=== PATIENT | male | born 1950 | race American Indian/Alaskan Native ===

== ENCOUNTER 2016-07-02 06:50 | Inpatient (IN) | payer MEDICARE ==
[~2016-07-02 06:50] MED LIST: ANCEF/STERILE WATER 2 GM/20 ML 2 GM/20 ML SYRINGE IV NR; NACL 0.9% 1000 ML 1,000 ML IV SCH
[2016-07-02 08:26] LABS: Hematocrit 40.5 % (35.5-45.6); Hemoglobin 12.8 gm/dl (11.8-15.2); Mean Corpuscular HGB Conc 32 % (32-34); Mean Corpuscular Hemoglobin 29 pg (28-32); Mean Corpuscular Volume 91 fl (84-94); Platelet Count 224 K/mm3 (140-440); Red Blood Count 4.47 M/mm3 (3.65-5.03); Red Cell Distribution Width 18.8 % (13.2-15.2); White Blood Count 7.2 K/mm3 (4.5-11.0)
[2016-07-02 08:32] LABS: INR 1.02 (0.87-1.13)
[2016-07-02 08:34] LABS: Partial Thromboplastin Time 28.5 Sec. (24.2-36.6)
[2016-07-02 10:58] LABS: BUN/Creatinine Ratio 3.37; Calcium 7.9 mg/dL (8.4-10.2); Chloride 93.1 mmol/L (98-107)
[2016-07-02 11:25] LABS: Potassium 6.4 mmol/L (3.6-5.0)
[2016-07-02] MEDS ORDERED: KIONEX PO ONE (12:23)
[2016-07-02] MEDS ORDERED: ANCEF/STERILE WATER 2 GM/20 ML 2 GM/20 ML SYRINGE IV ONE (13:39)
[2016-07-02] MEDS ORDERED: NACL 0.9% 100 ML ONE (13:43)
[2016-07-02] MEDS ORDERED: XYLOCAINE 1%/ EPI 1:100,000 INFILTRATI ONE (13:46)
[2016-07-02] MEDS ORDERED: SODIUM BICARBONATE IV ONE (13:46)
[2016-07-02] MEDS ORDERED: D50W (25GM) IV ONE (13:51)
[2016-07-02] MEDS: VERSED ONE ×3 (13:55→14:58)
[2016-07-02] MEDS: SUBLIMAZE ONE ×3 (13:55→14:58)
[2016-07-02] MEDS ORDERED: HEPARIN/NS 5000 UNIT/500ML(CATH LAB) 1,000 ML IR ONE (14:16)
[2016-07-02] MEDS: HEPARIN 10,000 UNITS/10 ML ONE ×2 (14:40→14:44)
[2016-07-02] MEDS ORDERED: NORCO 5/325 PO PRN (15:37)
--- NOTE | 2016-07-02 15:46 | Short Stay Summary ---
<BAILEE PARK - Last Filed: 07/02/16 15:44> Short Stay Documentation Date of service: 07/02/16 Narrative H&P: 66 year old male with ESRD and right arm AVF malfunction requiring attempts to create a HERO graft and requiring right internal jugular access. Attempts were made to salvage the access to attempt HERO graft conversion, but were unsuccessful. Left arm AV graft was then thought to be the patient's next best option. - Allergies and Medications Current Medications: Allergies No Known Allergies Allergy (Verified 03/09/13 12:06) Home Medications Medication Instructions Recorded Confirmed Last Taken Type Vit B Cplx #11/FA/C/Biot/Zn Ox 1 each PO DAILY 01/31/13 07/02/16 07/01/16 History [Dialyvite with Zinc Tablet] QUEtiapine [SEROquel] 50 mg PO PRN PRN 07/19/14 07/02/16 06/25/16 History Sevelamer HCl [Renagel] 5 tab PO QAC 07/19/14 07/02/16 07/01/16 History Cinacalcet [Sensipar] 60 mg PO DAILY 08/04/14 07/02/16 07/01/16 History Gabapentin [Neurontin] 100 mg pe PO QDAY 02/22/15 07/02/16 07/01/16 History Metoprolol [Lopressor TAB] 25 mg PO BID #60 tablet 06/21/16 07/02/16 07/01/16 Rx Active Medications Acetaminophen/Hydrocodone Bitart ([place] 5/325) 1 each PO Q6H PRN PRN Reason: Pain, Moderate (4-6) Cefazolin Sodium (Ancef/Sterile Water 2 Gm/20 Ml) 2 gm IV PREOP NR Stop: 07/05/16 07:59 Cinacalcet (Sensipar) 60 mg PO DAILY MARYCHUY Gabapentin (Neurontin) mg PO QDAY MARYCHUY Cefazolin Sodium (Ancef/Sterile Water 2 Gm/20 Ml) 2 gm in 20 mls @ 80 mls/hr IV PREOP NR PRN Reason: Protocol Stop: 07/02/16 23:59 Metoprolol Tartrate (Lopressor) 25 mg PO BID MARYCHUY Miscellaneous Medication (Sevelamer Hcl [Renagel]) 5 tab PO QAC MARYCHUY Quetiapine Fumarate (Seroquel) 50 mg PO PRN PRN PRN Reason: Anxiety - Disposition Condition at discharge: Stable Disposition: DISCHARGED TO HOME OR SELFCARE Short Stay Discharge Plan Follow up with: AUNG RUSSELL MD [Staff Physician] - 7 Days DEBRA SOLIS MD [Staff Physician] - 7 Days <NAKUL ZALDIVAR - Last Filed: 07/03/16 14:50> Short Stay Documentation - Allergies and Medications Current Medications: Allergies No Known Allergies Allergy (Verified 03/09/13 12:06) Home Medications Medication Instructions Recorded Confirmed Last Taken Type Vit B Cplx #11/FA/C/Biot/Zn Ox 1 each PO DAILY 01/31/13 07/02/16 07/01/16 History [Dialyvite with Zinc Tablet] QUEtiapine [SEROquel] 50 mg PO PRN PRN 07/19/14 07/02/16 06/25/16 History Sevelamer HCl [Renagel] 5 tab PO QAC 07/19/14 07/02/16 07/01/16 History Cinacalcet [Sensipar] 60 mg PO DAILY 08/04/14 07/02/16 07/01/16 History Gabapentin [Neurontin] 100 mg pe PO QDAY 02/22/15 07/02/16 07/01/16 History Metoprolol [Lopressor TAB] 25 mg PO BID #60 tablet 06/21/16 07/02/16 07/01/16 Rx Active Medications Acetaminophen (Tylenol) 650 mg PO Q4H PRN PRN Reason: Pain MILD(1-3)/Fever >100.5/QUIROGA Acetaminophen/Hydrocodone Bitart ([place] 5/325) 1 each PO Q6H PRN PRN Reason: Pain, Moderate (4-6) Cefazolin Sodium (Ancef/Sterile Water 2 Gm/20 Ml) 2 gm IV PREOP NR Stop: 07/05/16 07:59 Cinacalcet (Sensipar) 60 mg PO DAILY MARYCHUY Last Admin: 07/03/16 12:15 Dose: 60 mg Gabapentin (Neurontin) 100 mg PO QDAY MARYCHUY Last Admin: 07/03/16 12:15 Dose: 100 mg Heparin Sodium (Porcine) (Heparin) 5,000 unit IV SHU PRN PRN Reason: hemodialysis Last Admin: 07/02/16 20:09 Dose: 5,000 unit Sodium Chloride (Nacl 0.9% 1000 Ml) 100 mls @ 999 mls/hr IV SHU PRN PRN Reason: Hypotension Metoprolol Tartrate (Lopressor) 25 mg PO BID [facility] Last Admin: 07/03/16 12:14 Dose: 25 mg Morphine Sulfate (Morphine) 2 mg IV Q4H PRN PRN Reason: Pain, Moderate (4-6) Morphine Sulfate (Morphine) 4 mg IV Q4H PRN PRN Reason: Pain , Severe (7-10) Naloxone HCl (Narcan 0.4 Mg/1 Ml) 0.1 mg IV Q2MIN PRN PRN Reason: Res Rate </= 8 or 02 SAT < 92% Ondansetron HCl (Zofran) 4 mg IV Q8H PRN PRN Reason: N/V unrelieved by Reglan Quetiapine Fumarate (Seroquel) 50 mg PO PRN PRN PRN Reason: Anxiety Sevelamer Carbonate (Renvela) 4,000 mg PO AC [facility] Last Admin: 07/03/16 10:16 Dose: Not Given - Brief post op/procedure progress note Procedure: Operative Report Operative Report: EXAM: 1. Ultrasound-guided access of the right arm AV fistula 2. Fistulogram 3. Ultrasound-guided access of the right internal jugular vein 2 4. Venography of the right internal jugular vein 5. Ultrasound-guided access of the right common femoral vein 6. Venography of the right iliac veins 7. Selection of the SVC with venography from the groin approach 8. Selection of the right innominate vein stump with venography from a groin approach 9. Unsuccessful attempts from the internal jugular access, groin access, and fistula access to cross the chronic venous occlusion 10. Selection of the left axillary vein with venography from the groin approach 11. Selection of the left innominate vein and subclavian vein with venography from the groin approach DATE: 07/02/16 SWEATBAND CUTTING MACHINE OPERATOR: BAILEE PARK MD INDICATION: End-stage renal disease with AV fistula malfunction and attempt to create HERO graft to salvage the right upper extremity AV access - Hospital course Hospital course: Pt presented for attempt at R sided PC placement for subsequent Attempt at a RUE Hero graft placement. This was unable to be completed. His potassium was 6.4 and required admission with hyperkalemia and malfunctioning HD access. He was dialyzed. Given that we were unable to place a right sided perma-cath, then the plan for fci HD access changed. He will need LUE avg placement with a Hybrid graft. Unfortunately, the pt ate food the morning. The surgery was therefore canceled, and will need to be rescheduled. Pt's K was improved following HD. - Discharge Diagnoses (1) Dialysis AV fistula malfunction Status: Acute Qualifiers: Encounter type: E (2) Hyperkalemia Status: Acute Short Stay Discharge Plan Activity: advance as tolerated Weight Bearing Status: Weight Bear as Tolerated Diet: renal Wound: keep clean and dry
[2016-07-02] MEDS ORDERED: MORPHINE IV PRN ×2 (15:52)
[2016-07-02] MEDS ORDERED: ZOFRAN IV PRN (15:52)
[2016-07-02] MEDS ORDERED: TYLENOL PO PRN (15:52)
[2016-07-02] MEDS ORDERED: NARCAN 0.4 MG/1 ML IV PRN (15:52)
[2016-07-02] MEDS ORDERED: PROVENTIL IH ONE (16:09)
--- NOTE | 2016-07-02 16:09 | Operative Report ---
Operative Report Operative Report: EXAM: 1. Ultrasound-guided access of the right arm AV fistula 2. Fistulogram 3. Ultrasound-guided access of the right internal jugular vein 2 4. Venography of the right internal jugular vein 5. Ultrasound-guided access of the right common femoral vein 6. Venography of the right iliac veins 7. Selection of the SVC with venography from the groin approach 8. Selection of the right internal jugular vein stump with venography 9. Unsuccessful attempts from the internal jugular access, groin access, and fistula access to cross the chronic venous occlusion 10. Selection of the left axillary vein with venography from the groin approach 11. Selection of the left innominate vein and subclavian vein with venography from the groin approach DATE: 07/02/16 TRIAL MANAGEMENT ASSOCIATE: BAILEE PARK MD INDICATION: End-stage renal disease with AV fistula malfunction and attempt to create HERO graft to salvage the right upper extremity AV access MEDICATIONS: Please see nursing report for full details. DEVICES: Please see procedure note above CONTRAST: Please see optical laboratory technician noted above PROCEDURE: The risks, benefits, and alternatives were discussed with the patient; written informed consent was obtained. The patient's groins were prepped and draped in a sterile fashion, fistula was prepped and draped in a sterile fashion, and right neck was prepped and draped in a sterile fashion. Ultrasound is used to evaluate the fistula which was still patent in the peripheral portion. 21-gauge micropuncture needle was used to access the fistula under direct ultrasound guidance. 0.018 inch wire was passed to the fistula. Needle was exchanged for transitional dilator. Wire was exchanged for 0.035 inch wire. Transitional dilator was exchanged for a short 6 Indonesian sheath. Digital subtraction angiography was performed demonstrating occlusion of the venous outflow from the fistula with numerous collaterals visualized and no evidence of the axillary vein, subclavian vein, or innominate vein on the right side. Ultrasound was used to evaluate the neck and no external jugular vein was noted. The peripheral portion of the internal jugular vein was patent. The central portion was occluded. The peripheral portion of the internal jugular vein was accessed with a 21-gauge micropuncture needle under direct ultrasound guidance. 0.018 inch wire was passed into the vein. I decided that the access was too close to the occlusion based on where the 0.018 inch wire was coiling, and therefore I decided to access the internal jugular vein and a more peripheral location. The original needle was removed and the wire was left in site. The peripheral portion of the internal jugular vein was accessed with a 21- gauge micropuncture needle under direct ultrasound guidance. 0.018 inch wire was passed into the vein. Needle was exchanged for transitional dilator. I attempted to negotiate 0.018 through the chronic occlusion but was unsuccessful. I removed the wire and the inner dilator and left the outer portion of the transitional dilator. Digital subtraction angiography was performed demonstrating patency of the peripheral portion of the internal jugular vein with occlusion of the central portion of the internal jugular vein. There is late reconstitution of the distal portion of the right innominate vein. Glidewire advantage was then used to attempt to connect the access to the right innominate vein stump. This was unsuccessful. Ultrasound was used to evaluate the right groin and the right common femoral vein was patent. The right common femoral vein was accessed with a 21-gauge micropuncture needle under direct ultrasound guidance. 0.018 inch wire was passed into the vein. Needle was exchanged for transitional dilator. Wire was exchanged for 0.035 inch wire. Transitional dilator was exchanged for a 5 Indonesian sheath. Digital subtraction angiography was performed demonstrating moderate narrowing of the peripheral portion of the common iliac vein. The external iliac vein was smaller, but without a focal narrowing. The visualized portion of the infrarenal IVC was patent. Sheath was exchanged for a 7 Indonesian 65 cm pedicle destination which was then positioned in the SVC. Vertebral catheter and Glidewire advantage were used to cannulate the innominate vein stump and digital subtraction angiography was performed confirming position. I attempted multiple times to cannulate the internal jugular vein by using the existing transitional dilator in the internal jugular vein as a marker area on fluoroscopy and this was attempted in multiple projections. I was able to select a vein in the vicinity, but digital subtraction angiography demonstrated that this was a vein supplying the posterior neck muscles or the thyroid. Multiple times were made from the internal jugular transitional dilator and the groin catheters to attempt to cross the occlusion using a V 18 wire, and Glidewire advantage as well as an MPA catheter, and vertebral catheter. I then attempted to cross the occlusion using the arm access. Glidewire advantage was passed through the fistula access, and the sheath was exchanged for a 7 Indonesian 45 cm pedicle destination. Sheath with the use of multiple catheters and the Glidewire advantage were used to attempt to cross the occlusion in the axillary vein. This was ultimately unsuccessful. After determining that I was unable to cross the right innominate vein occlusion from either an internal jugular, femoral, or fistula approach, I decided to evaluate the left upper extremity for graft creation of this limb. Glidewire advantage and MPA catheter were used to select the left axillary vein. Digital subtraction angiography was demonstrating that the central portion of the axillary vein was patent, but the peripheral portion was occluded and had numerous collaterals without a clear vessel likely secondary to prior accesses in this extremity. The left subclavian vein was selected and digital subtraction angiography demonstrating patency of the left subclavian vein. Left innominate vein was selected and digital subtraction angiography was performed demonstrating patency of the left innominate vein. Digital subtraction angiography was performed through the sheath in the SVC and the sheath which was positioned in the innominate vein which demonstrated a mild narrowing in the upper portion of the SVC and the confluence of the left innominate vein and SVC. Given the minor nature of the narrowing, I decided not to perform an intervention at this point. The fistula access site was then closed with 4-0 Vicryl and the sheath was removed. The groin and neck access sites were then removed and pressure was held until hemostasis was achieved. Dermabond applied to all access sites. Pressure dressing applied to the right neck and right groin. Patient tolerated the procedure well. No immediate postprocedure complication. FINDINGS: Please see procedure note above IMPRESSION: 1. Successful selection of multiple vessels with venography through multiple accesses with inability to cross the chronic central venous occlusion. 2. Venography of the left upper extremity demonstrates occlusion of the peripheral axillary vein with patency of the central axillary vein, subclavian vein, and left innominate vein with mild narrowing of the upper portion of the SVC and the left innominate to SVC insertion.
[2016-07-02] MEDS ORDERED: SEVELAMER HCL PO SCH (16:30)
[2016-07-02] MEDS ORDERED: HEPARIN IV PRN (16:46)
[2016-07-02] MEDS ORDERED: NACL 0.9% 1000 ML 100 ML IV PRN (16:46)
[2016-07-02] MEDS: RENVELA PO SCH (17:40)
[2016-07-02] MEDS: LOPRESSOR PO SCH (23:39)
[2016-07-03 06:39] LABS: BUN/Creatinine Ratio 3.01; Calcium 8.1 mg/dL (8.4-10.2); Chloride 95.6 mmol/L (98-107); Potassium 5.3 mmol/L (3.6-5.0)
[2016-07-03] MEDS ORDERED: ANCEF/STERILE WATER 2 GM/20 ML IV NR (08:00)
--- NOTE | 2016-07-03 08:25 | Admit Criteria Form ---
Admission Criteria Documentation: HYPONATREMIA; HYPERNATREMIA; HYPOKALEMIA; HYPERKALEMIA; HYPOCALCEMIA; HYPERCALCEMIA Clinical Indications for Inpatient Care (Place 'X' for any and all applicable criteria): Ongoing inpatient care may be indicated for ANY ONE of the following [G](1)(2)(3 )(5): [ ]I. Hyponatremia with ANY ONE of the following: [ ]a) Sodium less than 130 mEq/L (mmol/L) (new) (6)(22) [ ]b) Sodium less than 135 mEq/L (mmol/L) with ANY ONE of the following: [ ]i) Severe medical etiology requiring inpatient management (eg, heart failure, hypovolemia) [ ]ii) Altered mental status [ ]iii) Seizures [ ]II. Hypernatremia with ANY ONE of the following: [ ]a) Sodium greater than 155 mEq/L (mmol/L) [ ]b) Sodium greater than 150 mEq/L (mmol/L) with ANY ONE of the following: [ ] i) Altered mental status [ ]ii) Seizures [ ]iii) Severe medical etiology (eg, hypovolemia, diabetes insipidus) [ ]iv) Severe weakness [ ]v) Severe medical etiology (eg, hemolysis, infection, drug overdose) [ ]III. Hypokalemia with ANY ONE of the following: [ ]a) Potassium less than 2.5 mEq/L (mmol/L) despite outpatient and emergency treatment [ ]b) Potassium less than 3.0 mEq/L (mmol/L) with ANY ONE of the following: [ ]i) Weakness [ ]ii) Cardiac abnormality (eg, arrhythmia, conduction disturbance) [ ]iii) Cardiac ischemia [ ]iv) Ileus [ ]v) Ongoing medical cause requiring inpatient management. ( e.g., acute renal wasting, SIADH) [ ]vi) Other severe symptoms [X ] IV. Hyperkalemia with ANY ONE of the following: [ ]a) Potassium greater than 6.5 mEq/L (mmol/L) [X ]b) Potassium greater than 5 mEq/L (mmol/L) with ANY ONE of the following: [ ]i) Severe ECG findings [H] [X ]ii) Acute worsening of renal failure (creatinine greater than 2.5 mg/dL (221 micromoles/L) or significant elevation for age and size) [ ] V. Hypocalcemia with ANY ONE of the following: [ ]a) Calcium less than 7 mg/dL (1.75 mmol/L) despite outpatient and emergency treatment(19) [ ]b) Calcium less than 8 mg/dL (2 mmol/L) with significant symptoms or findings; examples include: [ ]i) Cardiac abnormality (eg, arrhythmia or conduction disturbance) [ ]ii) Altered mental status [ ]iii) Seizures [ ]iv) Breathing difficulty [ ]v) Muscle spasms [ ]. Hypercalcemia with ANY ONE of the following: [ ]a) Calcium greater than 14 mg/dL (3.5 mmol/L) [ ]b) Calcium greater than 12 mg/dL (3 mmol/L) with ANY ONE of the following: [ ]i) Significant dehydration or hypovolemia as indicated by ANY ONE of the following(2): [ ]1. Clinically significant dehydration as indicated by ANY ONE of the following: [ ]A. Acute loss of weight from baseline (5% of body weight in adults, 9% in pediatric patients) [ ]B. Hemodynamic instability [ ]C. Acute renal failure [ ]D. Serum sodium greater than 150 mEq/L (mmol/L) [ ]2) Dehydration that is persistent indicated by ALL of the following: [ ]A. Oral rehydration therapy not tolerated or insufficient to adequately correct dehydration [ ]B. Appropriate intravenous treatment (eg, fluids ) does not readily correct dehydration ie, after 12 to 24 hours of treatment) [ ]ii) Significant symptoms or findings; examples include: [ ]1) Altered mental status [ ]2) Cardiac abnormality (eg, arrhythmia, conduction disturbance) [ ]3) Cardiac abnormality (eg, arrhythmia, conduction disturbance) The original [employer] content created by [employer] has been revised. The portions of the content which have been revised are identified through the use of italic text or in bold, and [facility] has neither reviewed nor approved the modified material. All other unmodified content is copyright [facility] [employer] Please see references footnoted in the original [facility] [employer] edition 2016 Admission Criteria Met: Yes
--- NOTE | 2016-07-03 10:11 | Consultation ---
History of Present Illness - Reason for Consult Consult date: 07/03/16 end stage renal disease Medications and Allergies Allergies Allergy/AdvReac Type Severity Reaction Status Date / Time No Known Allergies Allergy Verified 03/09/13 12:06 Home Medications Medication Instructions Recorded Confirmed Last Taken Type Vit B Cplx #11/FA/C/Biot/Zn Ox 1 each PO DAILY 01/31/13 07/02/16 07/01/16 History [Dialyvite with Zinc Tablet] QUEtiapine [SEROquel] 50 mg PO PRN PRN 07/19/14 07/02/16 06/25/16 History Sevelamer HCl [Renagel] 5 tab PO QAC 07/19/14 07/02/16 07/01/16 History Cinacalcet [Sensipar] 60 mg PO DAILY 08/04/14 07/02/16 07/01/16 History Gabapentin [Neurontin] 100 mg pe PO QDAY 02/22/15 07/02/16 07/01/16 History Metoprolol [Lopressor TAB] 25 mg PO BID #60 tablet 06/21/16 07/02/16 07/01/16 Rx Active Meds: Active Medications Acetaminophen (Tylenol) 650 mg PO Q4H PRN PRN Reason: Pain MILD(1-3)/Fever >100.5/QUIROGA Acetaminophen/Hydrocodone Bitart ([place] 5/325) 1 each PO Q6H PRN PRN Reason: Pain, Moderate (4-6) Cefazolin Sodium (Ancef/Sterile Water 2 Gm/20 Ml) 2 gm IV PREOP NR Stop: 07/05/16 07:59 Cinacalcet (Sensipar) 60 mg PO DAILY MARYCHUY Gabapentin (Neurontin) 100 mg PO QDAY [facility] Heparin Sodium (Porcine) (Heparin) 5,000 unit IV SHU PRN PRN Reason: hemodialysis Last Admin: 07/02/16 20:09 Dose: 5,000 unit Sodium Chloride (Nacl 0.9% 1000 Ml) 100 mls @ 999 mls/hr IV SHU PRN PRN Reason: Hypotension Metoprolol Tartrate (Lopressor) 25 mg PO BID MARYCHUY Last Admin: 07/02/16 23:39 Dose: Not Given Morphine Sulfate (Morphine) 2 mg IV Q4H PRN PRN Reason: Pain, Moderate (4-6) Morphine Sulfate (Morphine) 4 mg IV Q4H PRN PRN Reason: Pain , Severe (7-10) Naloxone HCl (Narcan 0.4 Mg/1 Ml) 0.1 mg IV Q2MIN PRN PRN Reason: Res Rate </= 8 or 02 SAT < 92% Ondansetron HCl (Zofran) 4 mg IV Q8H PRN PRN Reason: N/V unrelieved by Reglan Quetiapine Fumarate (Seroquel) 50 mg PO PRN PRN PRN Reason: Anxiety Sevelamer Carbonate (Renvela) 4,000 mg PO AC [facility] Last Admin: 07/02/16 17:40 Dose: 1,600 mg Review of Systems Constitutional: no fever, no chills Cardiovascular: edema, no chest pain, no shortness of breath, no dyspnea on exertion Respiratory: no cough Gastrointestinal: no abdominal pain, no nausea, no vomiting, no diarrhea, no constipation Musculoskeletal: no myalgias Integumentary: no rash Exam - Vital Signs Vital signs: Vital Signs Temp Pulse Resp BP Pulse Ox 97.7 F 83 16 101/60 96 07/02/16 07:19 07/02/16 07:19 07/02/16 07:19 07/02/16 07:19 07/02/16 07:19 - General Appearance General appearance: well-developed, well-nourished EENT: ATNC Respiratory: Clear to Ascultation Heart: regular, S1S2 Gastrointestinal: Present: normal. Absent: tenderness, distended Integumentary: no rash Neurologic: no focal deficit Musculoskeletal: Present: other (+edema) Psychiatric: cooperative Results - Lab Results 07/02/16 08:15 07/03/16 05:38 Most recent lab results Calcium 8.1 mg/dL (8.4-10.2) L 07/03/16 05:38 Assessment and Plan Impression: * Malfunctioning AV access * End stage renal disease on hemodialysis MWF * Hyperkalemia * Hypertension * Anemia secondary to ESRD * Secondary hyperparathyroidism Plan: * Patient is s/p hemodialysis yesterday * Schedule for access surgery today * Will continue MWF schedule * Renal diet * Epogen with dialysis
[2016-07-03] MEDS: RENVELA PO SCH (10:16)
[2016-07-03] MEDS: LOPRESSOR PO SCH ×2 (10:17→12:14)
[2016-07-03] MEDS: SENSIPAR PO SCH ×2 (10:17→12:15)
[2016-07-03] MEDS: NEURONTIN PO SCH ×2 (10:17→12:15)
--- NOTE | 2016-07-03 11:52 | Event Note ---
Date: 07/03/16 Pt was on the schedule for AVG placement today, but pt ate a "[place] sandwich, potato chips, and cranberry juice" this am. Surgery CX'd K is improved. Will d/ c pt home and re-schedule surgery for next week.
[2016-07-03 17:18] VITALS: BP 115/69
--- NOTE | 2016-07-03 17:47 | Vascular Lab Report ---
MISCELLANEOUS VESSEL IDENTIFICATION: COMMENTS ON THE SCAN: The right common femoral and internal jugular vein was identified and under real-time ultrasound guidance was cannulated. IMPRESSION: Successful ultrasound guided vein cannulation.
== END 2016-07-03 18:10 | disposition home or self-care (01) | DRG 314 ==
LOC: OPU 06:50 → 3A 15:52 → OBSVTOIN 15:52 → 3A 17:40
PROVIDERS: ADMIT Surgery Vascular Surgery; ATTEND Surgery Vascular Surgery
PROC: B5131ZZ Fluoroscopy of Right Jugular Veins using Low Osmolar Contrast (ICD-10-PCS; principal; 2016-07-02)
PROC: B51V1ZZ Fluoroscopy of Other Veins using Low Osmolar Contrast (ICD-10-PCS; 2016-07-02)
PROC: 5A1D00Z (ICD-10-PCS; 2016-07-02)
DX: T82.898A Other specified complication of vascular prosthetic devices, implants and grafts, initial encounter (principal); N18.6 End stage renal disease; I12.0 Hypertensive chronic kidney disease with stage 5 chronic kidney disease or end stage renal disease; E87.5 Hyperkalemia; D63.1 Anemia in chronic kidney disease; Z53.8 Procedure and treatment not carried out for other reasons; Z99.2 Dependence on renal dialysis
CPT/HCPCS: 36012; 36415; 75820; 76937; 80048; 82962; 85027; 85610; 85730; 94640; C1769; C1887; J0690; J1644; J1815; J2250; J3010; J7030; Q9967

== ENCOUNTER 2016-10-15 10:20 | Day surgery (SDC) | payer MEDICARE ==
[2016-10-15] MEDS ORDERED: HEPARIN/NS 5000 UNIT/500ML(CATH LAB) 1,000 ML IR ONE (13:03)
[2016-10-15] MEDS ORDERED: NACL 0.9% 250ML 250 ML ONE (13:04)
[2016-10-15] MEDS ORDERED: ANCEF/STERILE WATER 2 GM/20 ML 2 GM/20 ML SYRINGE IV ONE (13:04)
[2016-10-15] MEDS ORDERED: VERSED ONE (13:06)
--- NOTE | 2016-10-15 13:55 | Short Stay Summary ---
Short Stay Documentation Date of service: 10/15/16 Narrative H&P: 66 year old male with LUE AVG placement on 07/25. Needs thrombectomy to attempt to preserve access. Discussed that it might not be possible. - History Past Medical History: dialysis, ESRD, PVD, other (multiple thrombosed accesses ; SVC syndrome) Past Surgical History: Other (multiple AVG/AVF placements) Social history: alcohol abuse, other (living with brother) - Allergies and Medications Current Medications: Allergies No Known Allergies Allergy (Verified 03/09/13 12:06) Home Medications Medication Instructions Recorded Confirmed Last Taken Type Vit B Cplx #11/FA/C/Biot/Zn Ox 1 each PO DAILY 01/31/13 10/15/16 10/14/16 History [Dialyvite with Zinc Tablet] QUEtiapine [SEROquel] 50 mg PO PRN PRN 07/19/14 10/15/16 10/14/16 History Sevelamer HCl [Renagel] 5 tab PO QAC 07/19/14 10/15/16 10/14/16 History Cinacalcet [Sensipar] 60 mg PO DAILY 08/04/14 10/15/16 10/14/16 History Gabapentin [Neurontin] 100 mg pe PO QDAY 02/22/15 10/15/16 10/14/16 History Metoprolol [Lopressor TAB] 25 mg PO BID #60 tablet 06/21/16 10/15/16 10/14/16 Rx Insulin NPH/Regular [NovoLIN 70/30] 15 unit SQ QPM 07/09/16 10/15/16 10/14/16 History Insulin NPH/Regular [NovoLIN 70/30] 25 unit SQ QAM 07/09/16 10/15/16 10/14/16 History Active Medications Cefazolin Sodium (Ancef/Sterile Water 2 Gm/20 Ml) 2 gm in 20 mls @ 80 mls/hr IV PREOP NR PRN Reason: Protocol Stop: 10/15/16 23:00 Sodium Chloride (Nacl 0.9% 1000 Ml) 1,000 mls @ 42 mls/hr IV DIRECT MARYCHUY - Physical exam General appearance: no acute distress Lungs: Normal air movement Extremities: abnormal (LUE AVG thrombosed) - Brief post op/procedure progress note Date of procedure: 10/15/16 Pre-op diagnosis: thrombosed LUE AVG Post-op diagnosis: same Procedure: LUE AVG declot Anesthesia: local (w/ conscious sedation) Surgeon: BAILEE PARK Estimated blood loss: minimal Condition: stable - Hospital course Hospital course: Ready for discharge. - Disposition Condition at discharge: Stable Disposition: [id number] TO HOME OR SELFCARE - Discharge Diagnoses (1) Malfunction of arteriovenous shunt Status: Acute Qualifiers: Encounter type: E (2) End-stage renal disease on hemodialysis Status: Chronic Short Stay Discharge Plan Activity: advance as tolerated Weight Bearing Status: Weight Bear as Tolerated Diet: renal Wound: keep clean and dry Follow up with: EKTA VAZQUEZ PA [Primary Care Provider] - 7 Days Forms: AVG Arteriogram D/CInstruction
[2016-10-15] MEDS: SUBLIMAZE ONE ×2 (14:14→14:57)
[2016-10-15] MEDS: XYLOCAINE 1%/ EPI 1:100,000 INFILTRATI ONE ×2 (14:15→16:02)
[2016-10-15] MEDS: HEPARIN 10,000 UNITS/10 ML ONE ×4 (14:20→16:15)
[2016-10-15] MEDS ORDERED: WATER FOR INJ (PF) 10 ML ONE (14:31)
[2016-10-15] MEDS ORDERED: CATHFLO ONE (14:31)
[2016-10-15 17:27] VITALS: BP 121/73
--- NOTE | 2016-10-15 17:59 | Operative Report ---
Operative Report Operative Report: EXAM: 1. Ultrasound-guided access of the left arm AV graft towards the venous anastomosis 2. Central venogram with selection of the left innominate vein, and left subclavian vein. 3. Angioplasty of the SVC, left innominate vein, and left subclavian vein with a 10 mm angioplasty balloon 4. Angioplasty of the axillary vein, and AV graft with a 8 mm angioplasty balloon 5. Infusion of 4 mg of TPA throughout the AV graft 6. Trerotola mechanical thrombectomy of the AV graft 7. Rosey thrombectomy towards the venous outflow 8. Ultrasound-guided access of the left arm AV graft towards the arterial anastomosis 9. Brachial artery selection with angiogram 10. Angioplasty of the arterial anastomosis with a 4 mm angioplasty balloon 11. Rosey thrombectomy of the arterial plug 12. Angioplasty of the arterial anastomosis with a 6 mm angioplasty balloon 13. Repeat Trerotola thrombectomy of the AV graft towards the venous anastomosis 14. Rosey thrombectomy towards the venous anastomosis 15. Angioplasty of the SVC, left innominate vein, and left subclavian vein with a 12 mm angioplasty balloon 16. Angioplasty of the arterial anastomosis with a 6 mm cutting angioplasty balloon 17. Rosey thrombectomy of the entirety of the AV graft INDICATION: THROMBOSED LEFT ARM AV GRAFT WITH END-STAGE RENAL DISEASE. DATE: 10/15/16 MEDICATIONS: Please refer to nursing documentation for complete list of medications and heparin administration. VERSED AND FENTANYL TITRATED TO MODERATE SEDATION. THE PATIENT WAS MONITORED UNDER CONTINUOUS CARDIOPULMONARY MONITORING THROUGHOUT THE CASE. COMPLICATIONS: NONE IMMEDIATE DIGITAL CONTENT SPECIALIST: BAILEE PARK MD PROCEDURE: The procedure was discussed with the patient and the risks, benefits, and alternatives were discussed with the patient. Informed consent was obtained. The patient was transported into the angiography suite in stable condition and placed on the angiographic table. The left arm was assessed under real-time ultrasound which demonstrated a thrombosed left arm AV graft. The patient was prepped and draped in a sterile fashion. Lidocaine was used to anesthetize the skin. Under ultrasound guidance, the AV graft was punctured with the needle pointing towards the venous limb. 0.018 inch wire was advanced through the needle and this was exchanged for a transitional dilator. The inner dilator and wire were removed and a 0.035 inch García wire was advanced through the transitional dilator. The dilator was exchanged for a 7 [place] short sheath. Angled catheter was advanced over the wire and the wire was advanced into the inferior vena cava under fluoroscopic guidance. This required use of the Glidewire advantage. Then the wire was removed and the Angled catheter was used to perform a pullback venogram. Digital subtraction venography was performed in the left brachiocephalic vein which demonstrated artery diffuse narrowing of the SVC, left innominate vein, and left subclavian vein. The catheter was pulled back until clot was encountered in the axillary vein. 4 mg of TPA were infused through the length of the clot to the sheath as the arterial anastomosis was manually compressed. 10 mm x 4 cm angioplasty balloon was used angioplasty SVC, left innominate vein , and left subclavian vein. 8 mm x 8 cm angioplasty balloon was used to perform angioplasty of the left axillary vein, and the entirety of the AV graft. Trerotola thrombectomy device was used multiple times through the venous limb. Trerotola device was then removed. Angled catheter and García wire were negotiated into the inferior vena cava. Rosey was used to sweep from the sheath to the central veins. The arm was then punctured towards the arterial anastomosis under ultrasound guidance. 0.018 inch wire was advanced through the needle and exchanged for transitional dilator. The inner dilator and wire were removed and a 0.035 inch García wire was advanced to the transitional dilator. The dilator was exchanged for 6 [place] short sheath. The angled catheter was advanced over the 0.035 wire and the wire was advanced into the [place] brachial artery in a retrograde fashion. Digital subtraction angiography was performed which demonstrated patency of the brachial artery proximal and distal to the anastomosis but no flow into the graft. Attempts to pass the Rosey over the wire, but would not pass through the anastomosis. 4 mm angioplasty balloon was used to predilate the arterial anastomosis. Rosey catheter was inflated and use to sweep the anastomosis multiple times, pulling the plug towards the venous limb. Blood was aspirated from both sheaths. 6 mm angioplasty balloon was used to perform angioplasty of the arterial anastomosis. 8 mm angioplasty balloon was used to perform angioplasty of the peripheral portion of the AV graft. Digital subtraction angiography within the brachial artery demonstrated flow within the graft, but sluggish outflow. The arterial anastomosis was now patent without narrowing. Trerotola mechanical thrombectomy devices used to perform thrombectomy of the entirety of the graft again. Afterwards, Rosey thrombectomy was used in the venous outflow. Digital subtraction angiography again demonstrated sluggish flow. 12 mm angioplasty balloon was advanced over the wire use perform angioplasty of the SVC, left innominate vein, and left subclavian vein. Digital subtraction angiography demonstrated sluggish flow again, but only minimal narrowing of the central veins. Digital subtraction angiography within the brachial artery demonstrated recoil of the arterial anastomosis with severe narrowing. 6 mm cutting balloon was used to perform angioplasty of the arterial anastomosis. Afterwards, Rosey thrombectomy was used to perform thrombectomy from the arterial anastomosis to the central veins. Digital subtraction angiography demonstrated no residual narrowing within the graft, arterial anastomosis. There was prompt flow into the central veins. All the wires were removed. 3-0 Vicryl sutures were used to close the fistula access sites. Dermabond was applied. Pressure was held until hemostasis was achieved. The patient was then transferred to the outpatient recovery area. FINDINGS: Please see the procedure note for the findings. IMPRESSION: 1. Successful pharmacomechanical thrombectomy of the thrombosed left AV graft. 2. Successful venoplasty of the central veins, venous outflow and anastamosis. 3. Final imaging demonstrates minimal residual narrowing within the central veins, no areas of focal stenosis within the AV graft on completion venography, and no narrowing of the arterial anastomosis. There is no evidence of flow- limiting thrombus within the graft on completion venography.
--- NOTE | 2016-10-16 07:48 | Vascular Lab Report ---
MISCELLANEOUS VESSEL IDENTIFICATION: The arteriovenous access was identified in the left upper extremity and under real-time ultrasound guidance was cannulated. IMPRESSION: Successful ultrasound guided cannulation of the arteriovenous access site.
== END 2016-10-15 18:00 | disposition home or self-care (01) ==
LOC: OPU 10:20
PROVIDERS: ATTEND Radiology Diagnostic Radiology
DX: T82.868A Thrombosis due to vascular prosthetic devices, implants and grafts, initial encounter (principal); E11.22 Type 2 diabetes mellitus with diabetic chronic kidney disease; I12.0 Hypertensive chronic kidney disease with stage 5 chronic kidney disease or end stage renal disease; N18.6 End stage renal disease; F10.10 Alcohol abuse, uncomplicated; Z99.2 Dependence on renal dialysis; Z86.79 Personal history of other diseases of the circulatory system; Z79.4 Long term (current) use of insulin; Z79.899 Other long term (current) drug therapy; Y83.2 Surgical operation with anastomosis, bypass or graft as the cause of abnormal reaction of the patient, or of later complication, without mention of misadventure at the time of the procedure
CPT/HCPCS: 36415; 36905; 76937; 84132; C1725; C1751; C1757; C1769; C1894; J0690; J1644; J2250; J2997; J3010; J7050; Q9967

== ENCOUNTER 2016-11-06 10:22 | Day surgery (SDC) | payer MEDICARE ==
[2016-11-06] MEDS ORDERED: HEPARIN/NS 5000 UNIT/500ML(CATH LAB) 500 ML IR ONE (15:15)
[2016-11-06] MEDS ORDERED: NACL 0.9% 250ML 250 ML ONE (15:16)
[2016-11-06] MEDS ORDERED: XYLOCAINE 1%/ EPI 1:100,000 INFILTRATI ONE (15:16)
[2016-11-06] MEDS ORDERED: ANCEF/STERILE WATER 2 GM/20 ML 2 GM/20 ML SYRINGE IV ONE (15:16)
[2016-11-06] MEDS: SUBLIMAZE ONE ×2 (16:12→16:18)
[2016-11-06] MEDS: VERSED ONE ×2 (16:12→16:17)
[2016-11-06] MEDS ORDERED: SUBLIMAZE ONE (16:22)
[2016-11-06] MEDS ORDERED: VERSED ONE (16:22)
[2016-11-06] MEDS: HEPARIN 10,000 UNITS/10 ML ONE ×2 (16:30→16:31)
--- NOTE | 2016-11-06 16:39 | Short Stay Summary ---
Short Stay Documentation Date of service: 11/06/16 Narrative H&P: ESRD with permcath malfunction - History Principal diagnosis: Permcath malfunction H&P: obtained from office - Allergies and Medications Current Medications: Allergies No Known Allergies Allergy (Verified 03/09/13 12:06) Home Medications Medication Instructions Recorded Confirmed Last Taken Type Vit B Cplx #11/FA/C/Biot/Zn Ox 1 each PO DAILY 01/31/13 11/06/16 11/05/16 History [Dialyvite with Zinc Tablet] QUEtiapine [SEROquel] 50 mg PO PRN PRN 07/19/14 11/06/16 11/05/16 History Sevelamer HCl [Renagel] 5 tab PO QAC 07/19/14 11/06/16 11/05/16 History Cinacalcet [Sensipar] 60 mg PO DAILY 08/04/14 11/06/16 11/05/16 History Gabapentin [Neurontin] 100 mg pe PO QDAY 02/22/15 11/06/16 11/05/16 History Metoprolol [Lopressor TAB] 25 mg PO BID #60 tablet 06/21/16 11/06/16 2 Weeks Ago Rx Insulin NPH/Regular [NovoLIN 70/30] 15 unit SQ QPM 07/09/16 11/06/16 10/14/16 History Insulin NPH/Regular [NovoLIN 70/30] 25 unit SQ QAM 07/09/16 11/06/16 10/14/16 History - Physical exam General appearance: no acute distress Lungs: Normal air movement - Brief post op/procedure progress note Date of procedure: 11/06/16 Pre-op diagnosis: Permcath malfunction Post-op diagnosis: same Procedure: permcath exchange, venogram, venoplasty Anesthesia: local (w/ conscious sedation) Surgeon: BAILEE PARK Estimated blood loss: minimal Condition: stable - Hospital course Hospital course: Tolerated procedure without issue. Ready for discharge. - Disposition Condition at discharge: Stable Disposition: - TO HOME OR SELFCARE - Discharge Diagnoses (1) End-stage renal disease on hemodialysis Status: Chronic Short Stay Discharge Plan Activity: advance as tolerated Weight Bearing Status: Weight Bear as Tolerated Diet: renal Wound: keep clean and dry (Keep permcath dry. Do not get wet.) Follow up with: EKTA VAZQUEZ PA [Primary Care Provider] - 7 Days
--- NOTE | 2016-11-06 16:45 | Operative Report ---
Operative Report Operative Report: EXAM: 1. Fluoroscopic guided exchange of a left internal jugular tunneled cuffed hemodialysis catheter. 2. Superior venacava venography 3. Angioplasty of the left innominate vein and superior vena cava with a 12 mm angioplasty balloon. DATE: 11/06/16 INDICATION: End-stage renal disease with left PermCath malfunction requiring PermCath exchange and possible venography/venoplasty. MEDICATIONS: Please see nursing report for full details. TELETYPE TECHNICIAN: BAILEE PARK MD DEVICES: 27 cm tip to cuff 14.5 Fr dual lumen hemodialysis catheter ; existing catheter was a 28 tip to cuff 15 [place] dual lumen hemodialysis catheter CONTRAST: 30 mL nonionic contrast PROCEDURE: The risks, benefits, and alternatives were discussed and informed consent was obtained. The patient was transported to the angiography suite in satisfactory/ stable condition and was transported onto the angiography table. The patient was prepped and draped in a sterile fashion. The existing PermCath was prepped and draped in a sterile fashion. Heparin was removed from the lumens and then saline was used to flush the lumens. A stiff angled Glidewire was advanced through one of the lumens of the existing PermCath into the IVC. Lidocaine was used to anesthetize the existing PermCath dermatotomy. Using a hemostat, blunt dissection was used to free the existing cuff. The catheter was partially retracted. Digital subtraction venography was performed through the other. Over the 0.035 inch wire, the existing PermCath was removed and the wire was cleaned with ChloraPrep. A 8 [place] sheath was advanced over the wire. A 23 mm x 4 cm angioplasty balloon was advanced over the wire and used to perform angioplasty sequentially of the SVC and left innominate vein. The balloon was removed and a second wire was passed into the IVC. Digital subtraction angiography was performed through the sheath. The sheath was removed. A new PermCath was advanced over the wire and position centrally under fluoroscopic guidance. 2-0 Ethilon suture was used to secure the catheter at the dermatotomy. The catheter was charged with heparin 1000 units/mL space. Sterile dressing applied. The patient was transferred from the angiography suite back to the recovery area in stable condition. FINDINGS: 1. Excellent flow was obtained through the dialysis catheter with 20 mL syringes. 2. The new catheter tip is in the right atrium. 3. Superior vena cava venography demonstrates moderate to severe narrowing of the left innominate vein SVC junction and the portion of the SVC at the level of the azygous vein. There is also a fibrin sheath in the left innominate vein. 4. After angioplasty there is mild residual narrowing at the junction of the left innominate vein and SVC, and at the SVC at the level of the azygous vein. Fibrin sheath is no longer present. IMPRESSION: 1. Successful fluoroscopic guided replacement of a left internal jugular tunneled cuffed hemodialysis catheter. 2. Successful SVC and left innominate vein with an 12 mm angioplasty balloon.
[2016-11-06 17:25] VITALS: BP 114/60
== END 2016-11-06 17:43 | disposition home or self-care (01) ==
LOC: OPU 10:22
PROVIDERS: ATTEND Radiology Diagnostic Radiology
DX: T82.49XA Other complication of vascular dialysis catheter, initial encounter (principal); I87.1 Compression of vein; E11.22 Type 2 diabetes mellitus with diabetic chronic kidney disease; I13.2 Hypertensive heart and chronic kidney disease with heart failure and with stage 5 chronic kidney disease, or end stage renal disease; N18.6 End stage renal disease; I50.41 Acute combined systolic (congestive) and diastolic (congestive) heart failure; J44.9 Chronic obstructive pulmonary disease, unspecified; F41.9 Anxiety disorder, unspecified; M19.90 Unspecified osteoarthritis, unspecified site; F17.210 Nicotine dependence, cigarettes, uncomplicated; Z79.4 Long term (current) use of insulin; Z79.899 Other long term (current) drug therapy; Z99.2 Dependence on renal dialysis; Z98.890 Other specified postprocedural states; Z82.49 Family history of ischemic heart disease and other diseases of the circulatory system; Y83.8 Other surgical procedures as the cause of abnormal reaction of the patient, or of later complication, without mention of misadventure at the time of the procedure
CPT/HCPCS: 36415; 36581; 37248; 77001; 84132; C1725; C1750; C1769; J0690; J1644; J2250; J3010; J7050; Q9967

== ENCOUNTER 2016-11-18 08:40 | Day surgery (SDC) | payer MEDICARE ==
[~2016-11-18 08:40] MED LIST changes: +HEPARIN 10,000 UNITS/10 ML ONE; +MARCAINE 0.5% INFILTRATI ONE; +NACL 0.9% 500 ML 500 ML ONE
--- NOTE | 2016-11-18 09:26 | Anesthesia Day of Surgery ---
Anesthesia Day of Surgery - Day of Surgery Patient Examined: Yes Patient H&P Reviewed: Yes Patient is NPO: Yes
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
[2016-11-18] MEDS ORDERED: PEPCID PO NR (10:00)
[2016-11-18] MEDS ORDERED: ANCEF/STERILE WATER 2 GM/20 ML 2 GM/20 ML SYRINGE IV NR (10:00)
[2016-11-18 10:18] LABS: BUN/Creatinine Ratio 3.98; Calcium 7.4 mg/dL (8.4-10.2); Chloride 97.4 mmol/L (98-107); Potassium 5.1 mmol/L (3.6-5.0)
[2016-11-18] MEDS ORDERED: DIPRIVAN 10 MG/ML IV ONE (11:19)
[2016-11-18] MEDS ORDERED: SUBLIMAZE ONE (11:22)
[2016-11-18] MEDS ORDERED: XYLOCAINE MPF 2% ONE (11:23)
[2016-11-18] MEDS ORDERED: ePHEDrine SULFATE ONE (11:54)
[2016-11-18] MEDS ORDERED: NACL 0.9% 100 ML ONE (11:59)
[2016-11-18] MEDS ORDERED: NEO SYNEPHRINE ONE (11:59)
[2016-11-18] MEDS ORDERED: MARCAINE 0.5% INFILTRATI ONE (12:18)
[2016-11-18] MEDS ORDERED: HEPARIN 10,000 UNITS/10 ML 2,000 UNIT in NACL 0.9% 500 ML 500 ML IR ONE (12:18)
[2016-11-18] MEDS ORDERED: NACL 0.9% 500 ML 500 ML ONE (12:18)
[2016-11-18] MEDS ORDERED: NACL 0.9% IR ONE (12:18)
[2016-11-18] MEDS ORDERED: OMNIPAQUE (300 MG) 50 ML in NACL 0.9% 50 ML IR ONE (12:18)
[2016-11-18] MEDS ORDERED: ZOFRAN ONE (13:20)
--- NOTE | 2016-11-18 13:51 | Short Stay Summary ---
Short Stay Documentation Date of service: 11/18/16 Narrative H&P: See H&P - History H&P: obtained from office - Allergies and Medications Current Medications: Allergies No Known Allergies Allergy (Verified 11/13/16 11:33) Home Medications Medication Instructions Recorded Confirmed Last Taken Type Vit B Cplx #11/FA/C/Biot/Zn Ox 1 each PO DAILY 01/31/13 11/18/16 11/17/16 09:00 History [Dialyvite with Zinc Tablet] QUEtiapine [SEROquel] 50 mg PO PRN PRN 07/19/14 11/18/16 11/17/16 09:00 History Sevelamer HCl [Renagel] 5 tab PO QAC 07/19/14 11/18/16 11/17/16 18:00 History Cinacalcet [Sensipar] 60 mg PO DAILY 08/04/14 11/18/16 11/17/16 09:00 History Gabapentin [Neurontin] 100 mg pe PO QDAY 02/22/15 11/18/16 11/17/16 09:00 History Metoprolol [Lopressor TAB] 25 mg PO BID #60 tablet 06/21/16 11/13/16 2 Weeks Ago Rx Insulin NPH/Regular [NovoLIN 70/30] 15 unit SQ QPM 07/09/16 11/13/16 10/14/16 History Insulin NPH/Regular [NovoLIN 70/30] 25 unit SQ QAM 07/09/16 11/13/16 10/14/16 History Active Medications Sodium Chloride (Nacl 0.9% 1000 Ml) 1,000 mls @ 42 mls/hr IV DIRECT MARYCHUY Last Admin: 11/18/16 09:45 Dose: 42 mls/hr - Brief post op/procedure progress note Date of procedure: 11/25/16 Pre-op diagnosis: Complications of Dialysis Access Post-op diagnosis: same Procedure: 1. Open Thrombectomy of Left Forearm AV Graft with 6 Rosey and 6/10 Adherent Graft Thrombectomy Catheter 2. Left Upper Extremity and Central Venogram 3. Angioplasty and Stent of Left Subclavian Vein with a 10 x 40 Balloon, and 9 x 60 Fluency Stent Graft 4. Revision of Left Arm AV Graft Arterial Anastomosis with Bovine Patch Angioplasty 5. Radiologic Supervision with Interpretation Anesthesia: GETA Surgeon: FILI KRAFT Estimated blood loss: other (250 ml) Pathology: list (graft thrombus) Specimen disposition: discarded Condition: stable - Disposition Condition at discharge: Good Disposition: [id number] TO HOME OR SELFCARE Short Stay Discharge Plan Activity: other (no heavy lifting with left arm) Wound: open to air, keep clean and dry, other (okay to wash the wound with soap and water but do not soak in water ) Follow up with: FILI KRAFT MD [Staff Physician] - 14 Days Prescriptions: HYDROcodone/APAP 7.5-325 [[place] 7.5/325] 1 each PO Q6HR PRN #60 tablet PRN Reason: Pain
--- NOTE | 2016-11-18 14:02 | Operative Report ---
Operative Report Operative Report: Date of Procedure: 11/18/2016 Pre-operative Diagnosis: Complications of Dialysis Access Post-operative Diagnosis: Same Procedure(s): 1. Open Thrombectomy of Left Forearm AV Graft with 6 Rosey and 6/10 Adherent Graft Thrombectomy Catheter 2. Left Upper Extremity and Central Venogram 3. Angioplasty and Stent of Left Subclavian Vein with a 10 x 40 Balloon, and 9 x 60 Fluency Stent Graft 4. Angioplasty of the Innominate Vein and Superior Vena Cava with a 10 x 40 Balloon 5. Revision of Left Arm AV Graft Arterial Anastomosis with Bovine Patch Angioplasty 6. Radiologic Supervision with Interpretation Surgeon: Brian Dalton M.D. Final Dressing Cutter: Marco Anesthesia: Gen. Endotracheal Anesthesia EBL: 250 mL Counts: Correct Complications: None Condition: Stable Findings: The graft was completely thrombosed with occlusion of the distal portion of a stent in the distal subclavian vein. The vena cava was near totally occluded with approximate 70% stenosis of the innominate vein. After intervention the graft was widely patent. There was no appreciable residual stenosis within the subclavian vein. Approximately 20% residual stenosis in the innominate vein and the superior vena cava. Specimen: Thrombus from left AV graft discarded Indication: The patient is 66-year-old male with a history of end-stage renal disease who has a left AV graft that is thrombosed. He has a multiple endovascular interventions without success so it was felt that he would benefit from revision of the graft. He was given the risk, benefits, and alternative procedures and consented to procedure. Description of Procedure: The patient was brought to the operating room and laid in supine position. After general endotracheal anesthesia was achieved his left arm was prepped and draped in normal sterile fashion. A longitudinal incision was created just above the antecubital crease through his previous incision and carried down to the brachial artery using sharp dissection. The brachial artery was dissected circumferentially both proximal and distal to the graft anastomosis to control vessels. I then dissected out approximately 4 cm of the graft just distal to the anastomosis. I then made a longitudinal incision extending from the anastomosis to the graft and passed a 6 Rosey into the graft. I was able to pass the Rosey to the stent within the subclavian vein however the stent was occluded so I was unable to pass it through the stent. I performed thrombectomy with the Rosey and evacuated a significant amount of thrombus. I then advanced the adherent graft lumpectomy catheter and removed all the main and thrombus. I performed a venogram through the graft was demonstrated occlusion of the distal portion of the graft with approximate 70% stenosis in the midportion of the graft. Additionally there was a possible ascending percent stenosis of the innominate vein and near total occlusion of the superior vena cava. I was able to cross the areas of occlusion with a vertebral catheter and a Bentson wire was confirmed by venogram. I then exchanged the Bentson wire for a Amplatz wire and then perform balloon angioplasty of all the areas of stenosis using a 10 x 40 balloon. The result was approximately 20% residual stenosis of the SVC and innominate vein however there was approximately 80% residual stenosis at the distal tip of the stent graft in the subclavian vein. I placed a 9 x 60 Fluency stent graft across the area of stenosis and postdilated this with a 10 mm balloon. The result was a widely patent stent graft. I then turned my attention to the arterial anastomosis with there was a significant amount of intimal hyperplasia at the anastomosis. This was removed with a Pease knife and a hemostat. Once I removed the hyperplasia I closed the venotomy in the graft using a bovine pericardial patch. Prior to closing the patch I did flush the artery as well as the vein and then completed closure. Upon completing the closure I removed all clamps allow flow to the graft which had an excellent thrill. Hemostasis within the wound was achieved with quick clot. Once hemostasis was achieved the wound was anesthetized with Marcaine and then closed in 2 layers using a 3- 0 Vicryl in running fashion in the deep dermal layer and a 4 Monocryl in a running fashion and subcuticular and then the wound was dressed with Dermabond. The patient tolerated the procedure well. All sponge, needle, and estimate counts were correct. The patient was taken to the recovery area in stable condition.
--- NOTE | 2016-11-18 14:05 | Post Anesthesia Evaluation ---
- Post Anesthesia Evaluation Patient Participated: Yes Airway Patent: Yes Stable Respiratory Function: Yes Nausea/Vomiting: No Temp > 96.8F: Yes Pain Manageable: Yes Adequeate Hydration: Yes Anesthesia Complications: No Block Receding Appropriately: Not Applicable Patient on Ventilator: No
[2016-11-18] MEDS ORDERED: PROVENTIL IH ONE (14:22)
[2016-11-18] MEDS ORDERED: PROVENTIL IH PRN (14:35)
[2016-11-18 15:13] VITALS: BP 95/55
== END 2016-11-18 16:23 | disposition home or self-care (01) ==
LOC: OR 08:40
PROVIDERS: ATTEND Surgery Vascular Surgery
DX: T82.868A Thrombosis due to vascular prosthetic devices, implants and grafts, initial encounter (principal); E11.22 Type 2 diabetes mellitus with diabetic chronic kidney disease; I13.2 Hypertensive heart and chronic kidney disease with heart failure and with stage 5 chronic kidney disease, or end stage renal disease; N18.6 End stage renal disease; I50.41 Acute combined systolic (congestive) and diastolic (congestive) heart failure; I15.8 Other secondary hypertension; F41.9 Anxiety disorder, unspecified; D53.9 Nutritional anemia, unspecified; J44.9 Chronic obstructive pulmonary disease, unspecified; I83.208 Varicose veins of unspecified lower extremity with both ulcer of other part of lower extremity and inflammation; M19.90 Unspecified osteoarthritis, unspecified site; F17.210 Nicotine dependence, cigarettes, uncomplicated; F15.21 Other stimulant dependence, in remission; I48.91 Unspecified atrial fibrillation; K21.9 Gastro-esophageal reflux disease without esophagitis; E66.9 Obesity, unspecified; Z68.33 Body mass index [BMI] 33.0-33.9, adult; Z79.899 Other long term (current) drug therapy; Z79.4 Long term (current) use of insulin; Z99.2 Dependence on renal dialysis; Z98.890 Other specified postprocedural states; Z86.19 Personal history of other infectious and parasitic diseases; Z72.89 Other problems related to lifestyle; Z82.49 Family history of ischemic heart disease and other diseases of the circulatory system; Y83.2 Surgical operation with anastomosis, bypass or graft as the cause of abnormal reaction of the patient, or of later complication, without mention of misadventure at the time of the procedure
CPT/HCPCS: 36833; 37238; 80048; 82962; C1725; C1757; C1768; C1769; C1874; J0690; J1644; J2370; J2405; J2704; J3010; J3246; J7030; J7040; Q9966; 36415

== ENCOUNTER 2017-05-07 17:20 | Emergency (ER) | payer MEDICARE ==
[2017-05-07 19:05] LABS: Basophils # (Auto) 0.1 K/mm3 (0.0-0.1); Basophils % (Auto) 0.7 % (0.0-1.8); Eosinophils # (Auto) 0.1 K/mm3 (0.0-0.4); Eosinophils % (Auto) 0.7 % (0.0-4.3); Hematocrit 36.7 % (35.5-45.6); Hemoglobin 11.6 gm/dl (11.8-15.2); Lymphocytes # (Auto) 0.9 K/mm3 (1.2-5.4); Lymphocytes % (Auto) 10.7 % (13.4-35.0); Mean Corpuscular HGB Conc 32 % (32-34); Mean Corpuscular Volume 80 fl (84-94); Monocytes # (Auto) 1.1 K/mm3 (0.0-0.8); Monocytes % (Auto) 12.3 % (0.0-7.3); Platelet Count 173 K/mm3 (140-440)
[2017-05-07 19:21] LABS: Calcium 8.7 mg/dL (8.4-10.2)
[2017-05-07 19:28] LABS: Mean Corpuscular Hemoglobin 25 pg (28-32); Red Cell Distribution Width 20.5 % (13.2-15.2)
[2017-05-07 20:16] VITALS: BP 148/98
--- NOTE | 2017-05-07 20:17 | XRay Report ---
FINAL REPORT PROCEDURE: XR CHEST ROUTINE 2V TECHNIQUE: PA and lateral chest radiographs were obtained. CPT 24829 HISTORY: Shortness of breath COMPARISON: No prior studies are available for comparison. FINDINGS: Heart: Normal. Mediastinum/Vessels: Aortic calcification. Lungs/Pleural space: No pulmonary infiltrate, effusion, or pneumothorax. Bony thorax: No acute osseous abnormality. Other: Left central venous catheter tip is in the superior vena cava. A metallic foreign bodies are seen overlying the right upper chest IMPRESSION: No radiographic evidence of acute abnormality.
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
[2017-05-07] MEDS ORDERED: NACL 0.9% 250ML 250 ML IV ONE (21:20)
[2017-05-07] MEDS ORDERED: NACL 0.9% 300 ML ONE (22:14)
[2017-05-07 22:22] LABS: Creatine Kinase MB 2.7 ng/mL (0.0-4.0)
[2017-05-07 22:48] LABS: Chol/HDL Ratio 2.68 %
== END 2017-05-08 00:56 | disposition home or self-care (01) ==
LOC: ED 17:20
DX: R42 Dizziness and giddiness (principal); E11.22 Type 2 diabetes mellitus with diabetic chronic kidney disease; I12.0 Hypertensive chronic kidney disease with stage 5 chronic kidney disease or end stage renal disease; N18.6 End stage renal disease; I50.9 Heart failure, unspecified; R53.1 Weakness; J44.9 Chronic obstructive pulmonary disease, unspecified; F17.200 Nicotine dependence, unspecified, uncomplicated; I82.409 Acute embolism and thrombosis of unspecified deep veins of unspecified lower extremity; Z79.4 Long term (current) use of insulin
CPT/HCPCS: 36415; 71020; 80048; 80061; 82550; 82553; 83880; 84484; 85025; 93005; 93010

== ENCOUNTER 2017-05-08 08:16 | Day surgery (SDC) | payer MEDICARE ==
[~2017-05-08 08:16] MED LIST changes: -HEPARIN 10,000 UNITS/10 ML ONE; -MARCAINE 0.5% INFILTRATI ONE; -NACL 0.9% 500 ML 500 ML ONE
[2017-05-08] MEDS ORDERED: PEPCID PO NR (09:00)
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
[2017-05-08] MEDS ORDERED: LOPRESSOR IV ONE (10:00)
[2017-05-08] MEDS ORDERED: D50W (25GM) Syringe IV ONE (10:30)
[2017-05-08] MEDS ORDERED: MARCAINE 0.5% 0 ML INFILTRATI ONE (10:58)
[2017-05-08] MEDS ORDERED: NACL 0.9% 500 ML 0 ML ONE (10:58)
[2017-05-08] MEDS ORDERED: HEPARIN 10,000 UNITS/10 ML ONE (10:58)
[2017-05-08] MEDS ORDERED: SUBLIMAZE ONE (11:00)
[2017-05-08] MEDS ORDERED: DIPRIVAN 10 MG/ML IV ONE (11:00)
[2017-05-08 11:27] VITALS: BP 150/107
[2017-05-08] MEDS ORDERED: HEPARIN 10,000 UNITS/10 ML IV ONE (11:55)
--- NOTE | 2017-05-08 12:25 | Event Note ---
Date: 05/08/17 The patient was sent to the ER form dialysis yesterday for a near syncopal episode yesterday. He received iv fluids with some resolution of his symptoms however he signed out AMA. His labs revealed elevated troponin levels and although they are typically high baseline, they were 5 times his normal. They patient did not complain of any symptoms this morning in the preoperative area however we felt that it was safer to cancel his procedure today and reschedule in a few weeks. We discussed this plan with the patient who expressed understanding and agreed.
== END 2017-05-08 08:17 | disposition home or self-care (01) ==
LOC: OR 08:16
PROVIDERS: ATTEND Surgery Vascular Surgery
DX: R55 Syncope and collapse (principal); E11.22 Type 2 diabetes mellitus with diabetic chronic kidney disease; I12.0 Hypertensive chronic kidney disease with stage 5 chronic kidney disease or end stage renal disease; N18.6 End stage renal disease; J44.9 Chronic obstructive pulmonary disease, unspecified; I48.91 Unspecified atrial fibrillation; K21.9 Gastro-esophageal reflux disease without esophagitis; B19.20 Unspecified viral hepatitis C without hepatic coma; F17.210 Nicotine dependence, cigarettes, uncomplicated; F41.9 Anxiety disorder, unspecified; Z99.2 Dependence on renal dialysis; Z53.8 Procedure and treatment not carried out for other reasons
CPT/HCPCS: 82962; J1644; J7030; J0690; J2704; J3010; J7040